=== PATIENT | female | born 1960 | race Caucasian/White ===

== ENCOUNTER 2019-11-11 15:01 | Emergency (ER) | payer MEDICARE ==
[~2019-11-11] VITALS: Ht 152.4 cm; Wt 56.7 kg
[~2019-11-11 15:01] MED LIST: ACEHYDSO RIGHTEAR; ACET325 PO; ACYC400 PO; ACYC800 PO; ALBU3IS INH; ALBU90OI INH; ALBU90OI6 INH; ALBUIS INH; AMOCLA875 PO; ASPI81CH; BENZ100A PO; CIPR500 PO; CYCL10 PO; Cleocin HCl300 MG PO; DOCU100 PO; FERR325 PO; FLUSAL2505 INH; HYDACE10B PO; HYDACE5 PO; HYDCHL25 PO; HYDR1TAB94; HYDR1TAB94 PO; Ipratr-Albuterol3 ML INH; LEVO750 PO; LISI20 PO; LISI5 PO; MELO7.5 PO; METH10 PO; METO5A PO; MIGRAINE MED; NICO21TP TOP; Nix Lice Treatm59 ML TOP; OMEP20ER PO; ONDA4ODT MM; ONDA4ODT PO; Omeprazole20 M1 PO; PANT40 PO; PRED10 PO; PRED20 PO; PREG50 PO; PROP10; Percocet 5-3251 EACH PO; Prilosec20 MG PO; Prinivil10 MG PO; Protonix40 MG PO; Q-Tussin100 MG/5 M PO; RXHYDACE PO; SUCR1 PO; SUCR1SU PO; TRAM50 PO; Ventolin Soln3 ML INH; Zofran Odt4 MG PO; Zofran Odt4 MG SL; Zofran4 MG PO
[2019-11-11] MEDS ORDERED: HYDR1TAB94 PO (16:59)
== END 2019-11-11 17:12 | disposition home or self-care (01) ==
LOC: ER 15:01
DX: M25.551 Pain in right hip (principal); G89.29 Other chronic pain; Z79.899 Other long term (current) drug therapy; I10 Essential (primary) hypertension; J44.9 Chronic obstructive pulmonary disease, unspecified; D64.9 Anemia, unspecified; F17.200 Nicotine dependence, unspecified, uncomplicated
CPT/HCPCS: 73502; 99283-25; A9270-GY

== ENCOUNTER → 2020-09-14 | Outpatient (CLI) | payer MEDICARE | LOC: LAB 14:22 → LAB SHORT 14:22 | PROVIDERS: Nurse Practitioner Family | DX: G89.4 Chronic pain syndrome (principal); F19.10 Other psychoactive substance abuse, uncomplicated | CPT/HCPCS: G0480 ==

== ENCOUNTER 2021-01-19 20:27 | Emergency (ER) | payer MEDICARE ==
[~2021-01-19] VITALS: Ht 149.9 cm; Wt 56.7 kg
== END 2021-01-19 22:18 | disposition home or self-care (01) ==
LOC: ER 20:27
DX: M25.551 Pain in right hip (principal); G89.29 Other chronic pain; R06.00 Dyspnea, unspecified; I10 Essential (primary) hypertension; J44.9 Chronic obstructive pulmonary disease, unspecified; F17.200 Nicotine dependence, unspecified, uncomplicated; Z79.899 Other long term (current) drug therapy
CPT/HCPCS: 71045; 73502; 93005; 93010; 96372; 99283-25; J1885

== ENCOUNTER 2023-04-23 04:19 | Emergency (ER) | payer MEDICARE ==
[~2023-04-23] VITALS: Ht 149.9 cm; Wt 56.7 kg
[2023-04-23 04:25] VITALS: BP 180/111
[2023-04-23] MEDS ORDERED: ERYT1OIN BOTHEYES (08:17)
== END 2023-04-23 09:08 | disposition home or self-care (01) ==
LOC: ER 04:19
DX: H10.9 Unspecified conjunctivitis (principal); I10 Essential (primary) hypertension; J44.9 Chronic obstructive pulmonary disease, unspecified; F17.200 Nicotine dependence, unspecified, uncomplicated; Z79.899 Other long term (current) drug therapy
CPT/HCPCS: 99283; A9270

== ENCOUNTER 2023-08-11 16:19 | Emergency (ER) | payer MEDICARE ==
[~2023-08-11] VITALS: Ht 149.9 cm; Wt 63.5 kg
[~2023-08-11 16:19] MED LIST changes: +ERYT1OIN BOTHEYES
[2023-08-11] MEDS ORDERED: Metoprolol Succinate 25 MG TABCR PO ONE (16:50)
[2023-08-11 17:49] LABS: Bun/Creatinine Ratio 28.6 (12.0-20.0); Calcium, Blood 9.5 mg/dL (8.5-10.1); Creatinine, Blood 0.67 mg/dL (0.40-1.00); Potassium, Blood 3.4 mmol/L (3.5-5.5)
[2023-08-11 18:00] VITALS: BP 211/125
[2023-08-11] MEDS ORDERED: Acetaminophen 500 MG Tab PO ONE (18:00)
[2023-08-11] MEDS ORDERED: POTCHL10ER PO (18:02)
[2023-08-11] MEDS ORDERED: FURO20 PO (18:02)
== END 2023-08-11 18:39 | disposition home or self-care (01) ==
LOC: ER 16:19
PROVIDERS: Emergency Medicine
DX: S80.212A Abrasion, left knee, initial encounter (principal); S80.211A Abrasion, right knee, initial encounter; I10 Essential (primary) hypertension; E87.6 Hypokalemia; R60.0 Localized edema; W01.10XA Fall on same level from slipping, tripping and stumbling with subsequent striking against unspecified object, initial encounter; Z79.899 Other long term (current) drug therapy; J44.9 Chronic obstructive pulmonary disease, unspecified; F17.200 Nicotine dependence, unspecified, uncomplicated
CPT/HCPCS: 73562-LT; 73562-RT; 80048; 99284-25; A9270

== ENCOUNTER 2023-08-12 07:28 | Observation (INO) | payer MEDICARE ==
[~2023-08-12] VITALS: Ht 149.9 cm; Wt 50.6 kg
[~2023-08-12 07:28] MED LIST changes: +FURO20 PO; +POTCHL10ER PO
[2023-08-12 08:04] LABS: BASOPHILS ABSOLUTE AUTO 0.02 K/mm3 (0.00-0.23); BASOPHILS PERCENT AUTO 0 % (0-2); EOSINOPHILS ABSOLUTE AUTO 0.03 K/mm3 (0.00-0.68); EOSINOPHILS PERCENT AUTO 0 % (0-6); Hematocrit 41.6 % (33.0-51.0); Hemoglobin 13.2 g/dL (11.5-16.0); IMMATURE GRAN ABSOLUTE AUTO 0.01 K/mm3 (0.00-0.10); IMMATURE GRAN PERCENT AUTO 0 % (0-1); LYMPHOCYTES ABSOLUTE AUTO 1.27 K/mm3 (0.84-5.20); LYMPHOCYTES PERCENT AUTO 18 % (21-46); MONOCYTES ABSOLUTE AUTO 0.69 K/mm3 (0.16-1.47); MONOCYTES PERCENT AUTO 10 % (4-13); Mean Corpuscular HGB Conc 31.7 g/dL (31.5-36.5); Mean Corpuscular Volume 88 fL (80-100); Mean Platelet Volume 10.8 fL (9.1-12.4); NEUTROPHILS ABSOLUTE AUTO 5.07 K/mm3 (1.96-9.15); NEUTROPHILS PERCENT AUTO 72 % (41-73); Platelet Count 232 K/mm3 (150-400); RDW Coefficient Variation 13.7 % (11.7-14.2); RDW Standard Deviation 44.2 fL (35.1-46.3); Red Blood Cell Count 4.72 M/mm3 (3.80-5.20); White Blood Cell Count 7.09 K/mm3 (4.00-11.30)
[2023-08-12 08:20] LABS: Albumin, Blood 3.7 g/dL (3.4-5.0); Albumin/Globulin Ratio 0.8 (0.8-1.8); Bilirubin, Total 0.8 mg/dL (0.1-1.0); Bun/Creatinine Ratio 27.6 (12.0-20.0); Calcium, Blood 10.1 mg/dL (8.5-10.1); Creatinine, Blood 0.65 mg/dL (0.40-1.00); Globulin, Blood 4.5 g/dL (2.2-4.0); Potassium, Blood 3.9 mmol/L (3.5-5.5); Total Protein, Blood 8.2 g/dL (6.4-8.2)
[2023-08-12] MEDS ORDERED: Nitroglycerin 1 INCH/GM PKT TOP ONE (09:55)
[2023-08-12] MEDS ORDERED: Aspirin 325 MG Tab PO ONE (09:55)
[2023-08-12] MEDS ORDERED: Heparin Sodium 5000 Units/ML 1ML MDV IV ONE (10:35)
[2023-08-12] MEDS ORDERED: Acetaminophen 325 MG TABLET PO PRN (11:45)
[2023-08-12 11:47] LABS: Anti-Xa UFH, PHA Monitoring <0.10 IU/mL; International Normalized Ratio 1.02; Prothrombin Time Results 10.9 Sec (9.7-11.5)
[2023-08-12] MEDS ORDERED: Heparin Sodium,Porcine/0.5 NS 500 ML IV SCH (11:55)
[2023-08-12 12:07] LABS: CHOL/HDL RATIO 1.9; Cholesterol 169 mg/dL (50-200); HDL Cholesterol 87 mg/dL (>39); LDL/HDL RATIO 0.8; Low Density Lipoprotein Chol 72 mg/dL (0-110); Triglycerides 51 mg/dL (30-160); Very Low Density Lipoprot Chol 10 mg/dL (6-32)
[2023-08-12] MEDS ORDERED: HYDROcodone 5-APAP 325 TAB PO PRN (13:00)
[2023-08-12] MEDS ORDERED: Albuterol HFA200 ACT/6.7 GM INH INH PRN (13:25)
[2023-08-12 13:56] VITALS: BP 144/95
[2023-08-12] MEDS ORDERED: Atorvastatin 40 MG Tab PO SCH (16:00)
[2023-08-12 16:05] VITALS: BP 120/89
[2023-08-12] MEDS ORDERED: Pantoprazole Sodium 40 MG Tab PO SCH (16:30)
[2023-08-12] MEDS ORDERED: Sucralfate 1 GM Tab PO SCH (16:30)
[2023-08-12 17:01] LABS: U Amphetamine Screen DETECTED; U Barbituate Screen Not Detected; U Benzodiazapine Screen Not Detected; U Buprenorphine Screen Not Detected; U Cannabinoids Screen Not Detected; U Cocaine Screen Not Detected; U Methadone Screen Not Detected; U Methamphetamine Screen DETECTED; U Opiates Screen Not Detected; U Oxycodone Screen Not Detected; U Phencyclidine Screen Not Detected
--- NOTE | 2023-08-12 18:20 | NUR ---
PT ARRIVED IN THE ROOM AT APPROX 1400 PT TRANSFERRED TO BED VIA SLIDER SHEET. PT ALERT AND ORIENTED X3-4, MUMBLED SPEECH, ABLE TO ANSWER SOME QUESTIONS APPROPRIATELY HAS SOME BIZAARE/UNRELATED TOPICS RESPONSE AT TIMES. PT C/O HIP, BACK AND LEFT SHOULDER PAIN PT REPORTS SORENESS D/T FALL YESTERDAY BUT WAS ABLE TO STAND AND USE THE BEDSIDE COMMODE VIA WALKER 1PA, ALSO ABLE TO WORK WITH PHYSICAL THERAPIST. PT WAS MEDICATED WITH NORCO X1 AND PT SLEPT SINCE THEN. PT ON HEP GTT AT 15U/KG/HR DENIES CHEST PAIN SINCE ARRIVAL, TROPONIN TRENDS LAST 242, MD AWARE TO MONITOR PT FOR NOW, ABD KHARI DONE AWAITING FOR RESULT. UTOX DONE RESULTS POSITIVE FOR METH/AMPHETAMINES. PT UNABLE TO TOLERATE REGULAR FOOD TEXTURE DUE TO MISSING TEETH/MOLARS DIET SWITCHED TO SOFT. VITALS HRR SR 60-70'S, SBP 120-140'S, SATS ABOVE 95% ON RA, AFEBRILE. PT NOW RESTING IN BED CALL LIGHTS IN REACH WILL REPORT TO ONCOMING SHIFT
[2023-08-12 19:27] VITALS: BP 151/93
--- NOTE | 2023-08-12 19:50 | NUR ---
ASSUMPTION OF CARE AFTER RECEIVING REPORT FROM [place] RN, THIS RN ASSUMED CARE AT APPROX 1915. DURING INITIAL ENCOUNTER, PATIENT SLEEPING. EASILY AROUSABLE WITH VERBAL STIMULI. ALERT AND ORIENTED X3-4. SOFT, MUMBLED SPEECH NOTED. MOVES ALL EXTREMITIES EQUALLY WITH REPORTED INCREASED WEAKNESS SINCE FALL 08/11/23. REPORTS 5/10 CHRONIC BACK PAIN AND L HIP, L SHOULDER PAIN FROM FALL. REPORTING THAT THE NORCO ADMINISTERED PER EMAR BY DAY RN PROVIDED RELIEF. TELEMETRY SHOWING SINUS KARRI 50s-60s TO NORMAL SINUS 60s-70s. BP ELEVATED, SBP 150s. DENIES CHEST PAIN, PRESSURE. HEPARIN GTT INFUSING PER EMAR. ON ROOM AIR, SATs >90%. RESPIRATIONS EVEN, UNLABORED. PATIENT IS A STAND BY ASSIST TO BSC. REPOSITIONS HERSELF INDEPENDENTLY IN BED. BED ALARM ON DUE TO FALL 08/11/23. CALL LIGHT IN REACH.
[2023-08-12] MEDS ORDERED: Docusate Sodium 100 MG Cap PO SCH (21:00)
[2023-08-12 23:00] VITALS: BP 131/73
[2023-08-13] VITALS (7 sets, daily range): BP systolic 116–154; BP diastolic 74–105
[2023-08-13 02:01] LABS: BASOPHILS ABSOLUTE AUTO 0.03 K/mm3 (0.00-0.23); BASOPHILS PERCENT AUTO 1 % (0-2); EOSINOPHILS ABSOLUTE AUTO 0.07 K/mm3 (0.00-0.68); EOSINOPHILS PERCENT AUTO 1 % (0-6); Hematocrit 36.2 % (33.0-51.0); Hemoglobin 11.5 g/dL (11.5-16.0); IMMATURE GRAN ABSOLUTE AUTO 0.01 K/mm3 (0.00-0.10); IMMATURE GRAN PERCENT AUTO 0 % (0-1); LYMPHOCYTES ABSOLUTE AUTO 1.87 K/mm3 (0.84-5.20); LYMPHOCYTES PERCENT AUTO 34 % (21-46); MONOCYTES PERCENT AUTO 13 % (4-13); Mean Corpuscular HGB 27.9 pg (26.0-34.0); Mean Corpuscular HGB Conc 31.8 g/dL (31.5-36.5); Mean Corpuscular Volume 88 fL (80-100); Mean Platelet Volume 10.5 fL (9.1-12.4); NEUTROPHILS ABSOLUTE AUTO 2.76 K/mm3 (1.96-9.15); NEUTROPHILS PERCENT AUTO 51 % (41-73); Platelet Count 207 K/mm3 (150-400); RDW Coefficient Variation 14.1 % (11.7-14.2); RDW Standard Deviation 45.5 fL (35.1-46.3); Red Blood Cell Count 4.12 M/mm3 (3.80-5.20); White Blood Cell Count 5.44 K/mm3 (4.00-11.30)
[2023-08-13 02:19] LABS: Albumin, Blood 2.9 g/dL (3.4-5.0); Albumin/Globulin Ratio 0.8 (0.8-1.8); Bilirubin, Total 0.3 mg/dL (0.1-1.0); Bun/Creatinine Ratio 38.6 (12.0-20.0); Calcium, Blood 8.9 mg/dL (8.5-10.1); Creatinine, Blood 0.65 mg/dL (0.40-1.00); Globulin, Blood 3.5 g/dL (2.2-4.0); Potassium, Blood 3.9 mmol/L (3.5-5.5); Total Protein, Blood 6.4 g/dL (6.4-8.2)
[2023-08-13] MEDS ORDERED: Clarify Drug Order XX ONE (02:30)
--- NOTE | 2023-08-13 06:05 | NUR ---
SHIFT SUMMARY NO ACUTE EVENTS SINCE ASSUMPTION OF CARE. PATIENT SLEPT THROUGHOUT SHIFT. EASILY AROUSABLE WITH VERBAL STIMULI. CONTINUING TO REPORT CHRONIC BACK PAIN AND L HIP, L SHOULDER PAIN FROM FALL. MANAGING PER EMAR WITH PO NORCO AND REPOSITIONING PRN. TELEMETRY SHOWING SINUS KARRI 50s-60s. SBP 130s-150s. DENIES CHEST PAIN, PRESSURE. HEPARIN GTT INFUSING PER EMAR AT 15. ON ROOM AIR, SATs >90%. RESPIRATIONS EVEN, UNLABORED AT REST. EXPERIENCES MILD SHORTNESS OF BREATH WITH MOBILITY. IS A ONE PERSON ASSIST TO BSC WITH FWW. VOIDING. NO BM THIS SHIFT. CALL LIGHT IN REACH. WILL CONTINUE TO MONITOR AND REPORT TO ONCOMING RN.
[2023-08-13] MEDS ORDERED: Lisinopril 20 MG Tab PO SCH ×2 (09:00)
[2023-08-13] MEDS ORDERED: Aspirin 81 MG Chew PO SCH (09:00)
[2023-08-13] MEDS ORDERED: Furosemide 10 MG/ML 4ML Vial IV SCH (09:00)
[2023-08-13] MEDS ORDERED: HydrALAZINE HCl 20 MG / ML 1ML Vial IV PRN ×2 (09:50)
--- NOTE | 2023-08-13 10:54 | NUR ---
AM SUMMARY PATIENT IS ALERT AND ORIENTED X4. SHE WAS ABLE TO AMBULATE FROM BED TO CHIR FOR BREAKFAST WITH GAIT BELT AND WALKER ASSISTANCE. SHE WAS COMPLAINING OF BACK AND HIP PAIN WHEN SITTING UP IN BED. SHE ATE ABOUT 60% OF BREAKFAST. ORDERED A HIP XRAY THIS MORNING THAT IS STILL PENDING RESULTS. SHORTLY AFTER, PT CAME TO GET HER UP BUT WILL COME BACK AFTER PATIENT HAS RESTED PER NURSE ZENA. PATIENTS BP WAS HIGH THIS MORNING WHICH WAS EXPECTED WITH PREVIOUS DIAGNOSIS. AFTER WE GAVE LISINOPRIL, RECHECKED BP AND DID COME DOWN TO 116/84. SPO2 WAS HIGH 90'S ON RA. WILL CONTINUE TO MONITOR PAIN AND BP.
[2023-08-13] MEDS ORDERED: Varenicline Tartrate 1 MG Tablet PO SCH (16:00)
--- NOTE | 2023-08-13 18:01 | NUR ---
SHIFT SUMMARY HIP XRAY DONE AT 0900, RESULT SHOWED NECROTIC R HIP. DR. FREIRE STATED THAT SHE WAS REFERRED IN PAST TO MINE AND WE HAVE NO PLAN AT THIS TIME TO DO SURGERY HERE. PT COMPLAINED OF BREAKTHROUGH PAIN IN LEFT HIP AFTER NORCO WAS GIVEN BY NURSE FREITAS. TELEMETRY CONTINUED TO SHOW SINUS KARRI THROUGHOUT THE DAY. SPO2 WAS >90% ALL DAY ON RA. AFTER MEDICATING WITH LISINOPRIL FOR HTN, SBP WAS <115-135 AND DBP <70-80. AMBULATED TO CHAIR FOR ALL MEALS TODAY USING GAIT BELT AND WALKER. PHYSICAL THERAPY SAW HER AROUND 1500 AND SAID THAT ROM IN RIGHT LEG WAS NOT GOOD THE LEFT. PT REPORTED NO SOB OR PAIN IN CHEST WHILE AMBULATED TO COMMODE OR CHAIR. SHE NEVER HAD A BM TODAY, NO TROUBLES URINATING AFTER LASIX WAS GIVEN. RN PUBLIC HEALTH REGISTRAR SPOKE TO HER ABOUT HOME SITUATION, SHE STATED THAT SHE WANTED TO QUIT SMOKING. ORDERS FOR CHANTIX AND CELEBREX HAVE BEEN PUT INTO EMAR, WILL REPORT TO ONCOMING NURSE.
[2023-08-13] MEDS ORDERED: Celecoxib 100 MG Cap PO SCH (21:00)
--- NOTE | 2023-08-13 21:29 | NUR ---
PT IS ALERT AND ORIENTED X 4, COOPERATIVE WITH CARE AND ABLE TO MAKE NEEDS KNOWN. PERRLA. SHE IS HARD TO UNDERSTAND AT TIMES BC SHE MUMBLES WHEN SHE TALKS. SHE IS ON RA MAINTAINING 02 SATURATION ABOVE 92%, SHE DENIES SOB. HR HAS BEEN SR 80'S AND SHE DENIES CHEST PAIN/PRESSURE. PT IS CONTINENT OF BLADDER AND BOWELS. NO BOWEL MOVEMENT YET THIS SHIFT. PT COMPLAINS OF HIP, LEG, AND BACK PAIN. PT REPOSITIONED AND MEDICATED PER EMAR. PT HAD A VANILLA ENSURE, ORANGE JUICE, AND SOME YOGURT AND TOLERATED WELL. SHE IS CURRENTLY RESTING IN BED WITH TV ON. CALL LIGHT WITHIN REACH.
[2023-08-14 04:28] LABS: BASOPHILS ABSOLUTE AUTO 0.02 K/mm3 (0.00-0.23); BASOPHILS PERCENT AUTO 0 % (0-2); EOSINOPHILS ABSOLUTE AUTO 0.07 K/mm3 (0.00-0.68); EOSINOPHILS PERCENT AUTO 1 % (0-6); Hematocrit 37.3 % (33.0-51.0); Hemoglobin 11.8 g/dL (11.5-16.0); IMMATURE GRAN ABSOLUTE AUTO 0.02 K/mm3 (0.00-0.10); IMMATURE GRAN PERCENT AUTO 0 % (0-1); LYMPHOCYTES ABSOLUTE AUTO 1.74 K/mm3 (0.84-5.20); LYMPHOCYTES PERCENT AUTO 28 % (21-46); MONOCYTES ABSOLUTE AUTO 0.86 K/mm3 (0.16-1.47); MONOCYTES PERCENT AUTO 14 % (4-13); Mean Corpuscular HGB Conc 31.6 g/dL (31.5-36.5); Mean Corpuscular Volume 88 fL (80-100); Mean Platelet Volume 11.4 fL (9.1-12.4); NEUTROPHILS ABSOLUTE AUTO 3.43 K/mm3 (1.96-9.15); NEUTROPHILS PERCENT AUTO 56 % (41-73); Platelet Count 215 K/mm3 (150-400); RDW Coefficient Variation 14.2 % (11.7-14.2); RDW Standard Deviation 45.2 fL (35.1-46.3); Red Blood Cell Count 4.22 M/mm3 (3.80-5.20); White Blood Cell Count 6.14 K/mm3 (4.00-11.30)
[2023-08-14 04:29] VITALS: BP 158/89
[2023-08-14 04:51] LABS: Bun/Creatinine Ratio 39.9 (12.0-20.0); Calcium, Blood 9.5 mg/dL (8.5-10.1); Creatinine, Blood 0.85 mg/dL (0.40-1.00)
--- NOTE | 2023-08-14 06:50 | NUR ---
NO ACUTE CHANGES, SEE PREVIOUS NOTE.
[2023-08-14 07:44] VITALS: BP 161/92
[2023-08-14] MEDS ORDERED: Enoxaparin 40 MG/0.4 ML SYR SC SCH (09:00)
[2023-08-14] MEDS ORDERED: Ondansetron HCl 2 MG / ML 2ML Vial IV PRN (09:10)
[2023-08-14] MEDS ORDERED: LISI20 PO (12:07)
[2023-08-14] MEDS ORDERED: VARENICLINE PO (12:07)
[2023-08-14] MEDS ORDERED: ACET325 PO (12:07)
[2023-08-14] MEDS ORDERED: NAPROXEN PO (12:09)
[2023-08-14] MEDS ORDERED: CHANTIX0.5 MG PO (12:20)
--- NOTE | 2023-08-14 13:55 | NUR ---
PT DISCHARGED VIA DC VALENTINONOLBERTO [facility] @ 1008. ALL DC PAPERWORK WENT THROUGH AND ALL QUESTIONS ANSWERED. PT VERBALIZED UNDERSTANDING. DC PAPERWORK SIGNED
--- NOTE | 2023-08-15 01:38 | NUR ---
REVIEWED INFO FOR CURRENT ADMISSION
== END 2023-08-14 13:57 | disposition home or self-care (01) ==
LOC: ER 07:28 → PCU 07:29
PROVIDERS: Emergency Medicine; Family Medicine; ADMIT Internal Medicine
DX: R07.89 Other chest pain (principal); I21.4 Non-ST elevation (NSTEMI) myocardial infarction; I16.0 Hypertensive urgency; F17.210 Nicotine dependence, cigarettes, uncomplicated; J45.909 Unspecified asthma, uncomplicated; M87.9 Osteonecrosis, unspecified; K21.9 Gastro-esophageal reflux disease without esophagitis; M25.562 Pain in left knee; M25.561 Pain in right knee
CPT/HCPCS: 36415; 71045; 73502; 76705; 80048; 80053; 80061; 82947; 83036; 83690; 84484; 85025; 85520; 85610; 85730; 93005; 93010; 93306; 96365; 96372; 96375; 96376; 97110; 97116; 97161; 99285-25; A9270; G0378; J1644; J1650; J1940; J2405

== ENCOUNTER 2023-08-14 18:36 | Observation (INO) | payer MEDICARE ==
[~2023-08-14] VITALS: Ht 149.9 cm; Wt 51.5 kg
[~2023-08-14 18:36] MED LIST changes: +CHANTIX0.5 MG PO; +NAPROXEN PO; +VARENICLINE PO
[2023-08-14 20:13] LABS: BASOPHILS ABSOLUTE AUTO 0.02 K/mm3 (0.00-0.23); BASOPHILS PERCENT AUTO 0 % (0-2); EOSINOPHILS ABSOLUTE AUTO 0.03 K/mm3 (0.00-0.68); EOSINOPHILS PERCENT AUTO 0 % (0-6); Hematocrit 40.7 % (33.0-51.0); Hemoglobin 12.8 g/dL (11.5-16.0); IMMATURE GRAN ABSOLUTE AUTO 0.02 K/mm3 (0.00-0.10); IMMATURE GRAN PERCENT AUTO 0 % (0-1); LYMPHOCYTES ABSOLUTE AUTO 1.26 K/mm3 (0.84-5.20); LYMPHOCYTES PERCENT AUTO 17 % (21-46); MONOCYTES ABSOLUTE AUTO 0.69 K/mm3 (0.16-1.47); MONOCYTES PERCENT AUTO 9 % (4-13); Mean Corpuscular HGB 27.6 pg (26.0-34.0); Mean Corpuscular HGB Conc 31.4 g/dL (31.5-36.5); Mean Corpuscular Volume 88 fL (80-100); Mean Platelet Volume 10.8 fL (9.1-12.4); NEUTROPHILS PERCENT AUTO 72 % (41-73); Platelet Count 235 K/mm3 (150-400); RDW Coefficient Variation 14.2 % (11.7-14.2); RDW Standard Deviation 45.1 fL (35.1-46.3); Red Blood Cell Count 4.63 M/mm3 (3.80-5.20); White Blood Cell Count 7.32 K/mm3 (4.00-11.30)
[2023-08-14 20:36] LABS: Albumin, Blood 3.5 g/dL (3.4-5.0); Albumin/Globulin Ratio 0.9 (0.8-1.8); Bilirubin, Total 0.4 mg/dL (0.1-1.0); Bun/Creatinine Ratio 35.9 (12.0-20.0); Calcium, Blood 10.1 mg/dL (8.5-10.1); Creatinine, Blood 0.89 mg/dL (0.40-1.00); Globulin, Blood 4.1 g/dL (2.2-4.0); Potassium, Blood 3.9 mmol/L (3.5-5.5); Total Protein, Blood 7.6 g/dL (6.4-8.2)
[2023-08-14] MEDS ORDERED: HyDROXyzine HCl 25 MG Tab PO ONE (22:45)
[2023-08-14] MEDS ORDERED: Mag Hydrox/AL Hydrox/Simeth 30 ML UDC PO ONE (22:45)
[2023-08-14] MEDS ORDERED: Lidocaine 2% Viscous Soln 15 ML UDC PO ONE (22:45)
[2023-08-15] VITALS (8 sets, daily range): BP systolic 133–179; BP diastolic 82–106
[2023-08-15] MEDS ORDERED: Aspirin 325 MG Tab PO ONE (00:55)
[2023-08-15] MEDS ORDERED: Heparin Sodium,Porcine/0.5 NS 500 ML IV SCH (01:45)
[2023-08-15 01:46] LABS: Anti-Xa UFH, PHA Monitoring <0.10 IU/mL; International Normalized Ratio 0.95; Prothrombin Time Results 10.2 Sec (9.7-11.5)
[2023-08-15] MEDS ORDERED: FentaNYL Citrate 50 MCG/ML 2 ML Injection IV PRN (02:20)
[2023-08-15] MEDS ORDERED: NS 1,000 ML IV SCH (02:20)
[2023-08-15] MEDS ORDERED: Ondansetron HCl 2 MG / ML 2ML Vial IV PRN (02:20)
[2023-08-15] MEDS ORDERED: Mag Hydrox/Al Hydrox/Simeth 72 ML,Lidocaine 2% Viscous Soln 36 ML,Atropine/Scopalam/Hyo... PO PRN (02:30)
[2023-08-15] MEDS ORDERED: HydrALAZINE HCl 20 MG / ML 1ML Vial IV ONE (03:00)
[2023-08-15] MEDS ORDERED: HydrALAZINE HCl 20 MG / ML 1ML Vial IV PRN (04:20)
[2023-08-15] MEDS ORDERED: Nitroglycerin 0.4 MG SUBL SL PRN (04:20)
[2023-08-15] MEDS ORDERED: Pantoprazole Sodium 40 MG Injection IV SCH (04:30)
[2023-08-15 05:03] LABS: BASOPHILS ABSOLUTE AUTO 0.02 K/mm3 (0.00-0.23); BASOPHILS PERCENT AUTO 0 % (0-2); EOSINOPHILS ABSOLUTE AUTO 0.05 K/mm3 (0.00-0.68); EOSINOPHILS PERCENT AUTO 1 % (0-6); Hemoglobin 13.6 g/dL (11.5-16.0); IMMATURE GRAN ABSOLUTE AUTO 0.01 K/mm3 (0.00-0.10); IMMATURE GRAN PERCENT AUTO 0 % (0-1); LYMPHOCYTES ABSOLUTE AUTO 2.17 K/mm3 (0.84-5.20); LYMPHOCYTES PERCENT AUTO 33 % (21-46); MONOCYTES ABSOLUTE AUTO 0.84 K/mm3 (0.16-1.47); MONOCYTES PERCENT AUTO 13 % (4-13); Mean Corpuscular HGB 28.3 pg (26.0-34.0); Mean Corpuscular HGB Conc 32.4 g/dL (31.5-36.5); Mean Corpuscular Volume 87 fL (80-100); Mean Platelet Volume 11.5 fL (9.1-12.4); NEUTROPHILS ABSOLUTE AUTO 3.45 K/mm3 (1.96-9.15); NEUTROPHILS PERCENT AUTO 53 % (41-73); Platelet Count 235 K/mm3 (150-400); RDW Standard Deviation 45.1 fL (35.1-46.3); Red Blood Cell Count 4.81 M/mm3 (3.80-5.20); White Blood Cell Count 6.54 K/mm3 (4.00-11.30)
[2023-08-15] MEDS ORDERED: Acetaminophen 325 MG TABLET PO PRN (05:05)
--- NOTE | 2023-08-15 05:07 | NUR ---
SHIFT SUMMARY. PT ARRIVED ON UNIT AT ABOUT ~0400. AOX3-4 BUT VERY ANXIOUS WITH FLIGHT OF IDEAS PRESENT. 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 DESPITE THIS, HAS BEEN COOPERATIVE WITH CARE THUS FAR. COMPLAINED OF ABD AND RIGHT HIP PAIN. NOTIFIED HOSPITALIST DR. CANELA WHO ORDERED TYLENOL FOR MANAGEMENT. REGULAR DIET OKAY PER DR. CANELA. ADMISSION PROCESS COMPLETED PER PROTOCOL. VITALS STABLE SINCE ARRIVAL. PT ON ROOM AIR. ADMITTED FOR NSTEMI. HEPARIN DCd IN ED. NS INFUSING PER EMAR. EDUCATED SOLAR MANAGER LIGHT USE. EDUCATED ON FIRE SAFETY/IGNITION RISKS. UNCOLLECTED URINE SPECIMEN FOR TOXICOLOGY SCREEN. PER ED REPORT, PT INCONTINENT/CONTINENT. ATTENDS IN PLACE. TELE IN PLACE, RUNNING SINUS RHYTHM. BED LOCKED IN LOWEST POSITION. CALL LIGHT LEFT WITHIN REACH. CONTINUING TO MONITOR.
[2023-08-15 05:51] LABS: Albumin, Blood 3.5 g/dL (3.4-5.0); Albumin/Globulin Ratio 0.8 (0.8-1.8); Bilirubin, Total 0.3 mg/dL (0.1-1.0); Bun/Creatinine Ratio 33.2 (12.0-20.0); Calcium, Blood 9.7 mg/dL (8.5-10.1); Creatinine, Blood 0.72 mg/dL (0.40-1.00); Globulin, Blood 4.4 g/dL (2.2-4.0); Potassium, Blood 3.8 mmol/L (3.5-5.5); Total Protein, Blood 7.9 g/dL (6.4-8.2)
--- NOTE | 2023-08-15 05:51 | NUR ---
CALLED TO NOTIFY HOSPITALIST DR. CANELA OF MILDLY ELEVATED D-DIMER. NO ORDERS AT THIS TIME. CONTINUING TO MONITOR.
[2023-08-15 08:04] LABS: U Amphetamine Screen Not Detected; U Barbituate Screen Not Detected; U Benzodiazapine Screen Not Detected; U Buprenorphine Screen Not Detected; U Cannabinoids Screen Not Detected; U Cocaine Screen Not Detected; U Methadone Screen Not Detected; U Methamphetamine Screen Not Detected; U Opiates Screen DETECTED; U Oxycodone Screen Not Detected; U Phencyclidine Screen Not Detected
[2023-08-15] MEDS ORDERED: Varenicline Tartrate 1 MG Tablet PO SCH (09:00)
[2023-08-15] MEDS ORDERED: Lisinopril 20 MG Tab PO SCH (09:00)
[2023-08-15] MEDS ORDERED: Enoxaparin 40 MG/0.4 ML SYR SC SCH (09:00)
--- NOTE | 2023-08-15 15:40 | NUR ---
PT SHIFT SUMMARY/TRANSFER NOTE: PT TRANSFERRED TO 344 BEDSIDE REPORT GIVEN TO DANIEL HUDSON. ALL BELONGINGS SENT WITH THE PT WELL POCKET KNIFE AND PACKET OF CIGARETTE THAT WAS LOCKED UP IN THE DRAWER. PT STARTED GETTING REALLY ANXIOUS, CONFUSED, HALLUCINATING AND VERY PARANOID BEFORE LUNCH TIME. PT HAS SET THE CHAIR AND BED ALARM ON MULTIPLE TIMES D/T ATTEMPTS OF LEAVING AMA. PT WAS SEEING AND HEARING THINGS LIKE THE TOBIAS ARE FALLING APART OR THERE'S A TRUCK IN THE WINDOW TRYING TO GET IN. YELLED AND ACCUSED THIS RN OF TALKING TO THIS RUTHIE NAMED "JOHNNA" WHO'S A [employer] MDS MANAGER AND IS AFTER HER, ACCUSING THAT THIS RN WAS TALKING TO THAT RUTHIE BEHIND HER BACK PLANNING TO GIVE HIM THE "HOLMAN". PT STATED AND WAS VERY EMOTIONAL "I DONT TRUST HIM! I KNOW HE'S AROUND! HE'S BEHIND ME AND YOU'RE TALKING TO HIM! I DONT TRUST HIM HIS ABUSIVE AND HE'S GONNA KIDNAP ME!" PT REASSURED SAFETY AND WAS REDIRECTED MULTIPLE TIMES AND EVERY TIME PT HEARS AND SEES PEOPLE TALKING IN THE HALLWAY PT STARTS TO GET AGITATED AND WANTS TO LEAVE AMA. PT WAS RE-INFORMED OF PLAN OF CARE. PT GOT TRANSFERRED TO 344 [facility]UC MED PERSON CAME IN TO EXPLAIN PROCEDURE SUDDENLY PT REFUSED THE PROCEDURE EVEN THE LAB DRAWS. PT ABLE TO GET CT CHEST DONE THIS MORNING CAME BACK NEGATIVE FOR CLOTS. PT DENIED ANY CHEST PAIN/PRESSURE. SBP WAS ELEVATED AT 170'S THIS MORNING TRENDED DOWN BEFORE LUNCH TIME TO 130'S AFTER AM DOSE OF LISINOPRIL WAS GIVEN. NS RUNNING AT 75MLS/HR. PT TRANSFERRED VIA WHEELCHAIR.
--- NOTE | 2023-08-15 15:45 | NUR ---
NOTE: PT REFUSED STRESS TEST AND LAB DRAW AT 1515. EDUCATION PROVIDED ON THE IMPORTANCE OF THE TEST AND WHAT WOULD RESULT IF NOT COMPLETED. PT CONTINUED TO REFUSE. [employer] ALSO ATTEMPTED TO EDUCATION. PROVIDER, DR. RUANO NOTIFIED. PT CONTACTED HER COUSIN AND MAY ATTEMPT TO LEAVE AMA.
--- NOTE | 2023-08-15 16:32 | NUR ---
TRANSFER NOTE: PT TRANSFERRED FROM 361. ORIENTED TO ROOM. PERSONAL BELONGINGS LOCKED UP AND ON THE DAY BED. PT IS PARANOID AND ANXIOUS ABOUT BEING IN A NEW ROOM. CONTINUOUSLY ATTEMPTING TO REORIENT AND REASSURE THE PT THAT SHE IS SAFE.
--- NOTE | 2023-08-15 17:44 | NUR ---
NOTE: PT REFUSED A SECOND ATTEMPT AT A LAB DRAW.
--- NOTE | 2023-08-15 18:22 | NUR ---
SHIFT SUMMARY PT AOX2-3, IT WAXES AND WANES. 1 ASSIST WITH THE FWW TO THE BSC. 1:1 SITTER AT THE BS FOR PRODUCT SAFETY AND STANDARDS ENGINEER. PT IS PARANOID AND HALLUCINATING. SHE IS SEEING A MAN NAMED "ZAIDA" IN HER ROOM AND SHE CLAIMS HE IS THERE TO HARM HER. THE PT WILL ATTEMPT TO JUMP OUT OF THE BED, WANTING TO LEAVE FOR SAFETY. SHE HAS ATTEMPTED TO GET OOB MULTIPLE TIMES SINCE HER TRANSFER FROM [facility]. PT HAS THREATENED TO LEAVE AMA MULTIPLE TIMES BUT HAS YET TO SOLIDIFY A RIDE TO MAKE THAT HAPPEN. AT THE MOMENT WITH THE SITTER, SHE IS CALM. SHE IS WATCHING MOVIES AND APPEARS DISTRACTED. CALL LIGHT WITHIN REACH, BED LOCKED AND IN THE LOWEST POSITION. BA ON. NO FURTHER COMPLAINTS AT THIS TIME FROM THE PT. WILL REPORT TO ONCOMING NURSE.
[2023-08-16] MEDS ORDERED: DiphenhydrAMINE HCL 25 MG Cap PO PRN (00:25)
[2023-08-16] MEDS ORDERED: Polyethylene Glycol 3350 17 gm PO PRN (01:50)
--- NOTE | 2023-08-16 03:29 | NUR ---
bell captain PT IS ALERT AND ORIENTED, HAD OCCUTIONAL PARANOIA AND HALLUCINATION THAT INCREASED HER HEART RATH EACH TIME. PT IS A LITTLE IMPULSIVE AT TIMES SO SHE HAS A SITTER AT BED SIDE. REDNESS AND EDEMA NOTED TO BILATERAL ARMS. PT COMPLAINED OF IT ITCHING AND HURTING A LITTLE BIT. PICTURES WERE TAKEN AND WAS N OTIFIED. PT COMPLAINED OF 10/10 PAINED TO HER ALEXEY ABD AND SAID THAT SHE HASN'T HAD A BOWEL MOVEMENT IN ABOUT 3 DAYS. PRN PAIN MED WAS GIVEN AND MD WAS NOTIFIED AND PRN STOOL SOFTNER WAS. ORDERED. PT SAID SHE WOULD RATHER TAKE IT IN THE MORNING. BP WAS ELEVATED AND PRN HYDRALAZINE WAS GIFVEN. BP WAS CHECKED 30 MINUTES LATER AND IT DECREASED FROM 170S TO 160 SYSTOLIC.
--- NOTE | 2023-08-16 03:48 | NUR ---
NOTIFIED HOSPITALIST THAT PT REPORTED NEW REDNESS AND ITCHING BILATERALLY IN HANDS. BENADRYL PO ORDERED AND GIVEN. UPON REASSESSMENT LESS REDNESS AND PT REPORTS NO ITCHING.
[2023-08-16 04:45] VITALS: BP 168/84
[2023-08-16 06:17] LABS: BASOPHILS ABSOLUTE AUTO 0.03 K/mm3 (0.00-0.23); BASOPHILS PERCENT AUTO 0 % (0-2); EOSINOPHILS ABSOLUTE AUTO 0.08 K/mm3 (0.00-0.68); EOSINOPHILS PERCENT AUTO 1 % (0-6); Hematocrit 39.5 % (33.0-51.0); Hemoglobin 12.7 g/dL (11.5-16.0); IMMATURE GRAN ABSOLUTE AUTO 0.02 K/mm3 (0.00-0.10); IMMATURE GRAN PERCENT AUTO 0 % (0-1); LYMPHOCYTES ABSOLUTE AUTO 1.86 K/mm3 (0.84-5.20); LYMPHOCYTES PERCENT AUTO 25 % (21-46); MONOCYTES ABSOLUTE AUTO 0.95 K/mm3 (0.16-1.47); MONOCYTES PERCENT AUTO 13 % (4-13); Mean Corpuscular HGB 28.2 pg (26.0-34.0); Mean Corpuscular HGB Conc 32.2 g/dL (31.5-36.5); Mean Corpuscular Volume 88 fL (80-100); Mean Platelet Volume 10.7 fL (9.1-12.4); NEUTROPHILS ABSOLUTE AUTO 4.43 K/mm3 (1.96-9.15); NEUTROPHILS PERCENT AUTO 60 % (41-73); Platelet Count 225 K/mm3 (150-400); RDW Coefficient Variation 14.4 % (11.7-14.2); RDW Standard Deviation 46.2 fL (35.1-46.3); Red Blood Cell Count 4.51 M/mm3 (3.80-5.20); White Blood Cell Count 7.37 K/mm3 (4.00-11.30)
[2023-08-16 06:42] LABS: Albumin, Blood 3.5 g/dL (3.4-5.0); Albumin/Globulin Ratio 0.9 (0.8-1.8); Bilirubin, Total 0.5 mg/dL (0.1-1.0); Bun/Creatinine Ratio 31.3 (12.0-20.0); Calcium, Blood 9.9 mg/dL (8.5-10.1); Creatinine, Blood 0.64 mg/dL (0.40-1.00); Globulin, Blood 3.7 g/dL (2.2-4.0); Total Protein, Blood 7.2 g/dL (6.4-8.2)
[2023-08-16 07:15] VITALS: BP 150/80
[2023-08-16] MEDS ORDERED: Docusate Sodium 100 MG Cap PO SCH (09:00)
[2023-08-16] MEDS ORDERED: AmLODIPine Besylate 5 MG Tab PO SCH (09:00)
--- NOTE | 2023-08-16 11:50 | NUR ---
Patient is sitting on the bench in her room, with a sitter present. She tells me about the staff always watching her, talking about her and keeping her against her will. She states that she will leave the hospital today if no medical assistance is administered. We explore reasons to stay and better ways to view the staff who are trying to provide the best care possible. Patient responds well to redirection, kindness, focused attention and prayer, and states that she will think about staying until all tests are completed. I will continue to remain available to patient and family.
--- NOTE | 2023-08-16 14:43 | NUR ---
Spoke with pt daughter Shaina who is on pt cell phone. Shaina states pt grandson Aiden will be here to pick pt up and bring her to [facility] in [place]. Clarified pt will be signing out AMA. Dr. Ramirez informed.
[2023-08-16 14:57] VITALS: BP 124/92
--- NOTE | 2023-08-16 17:18 | NUR ---
Spoke with pt daughter Shaina who now states they are unable to pick her up due to car trouble. Pt remains paranoid, yelling. Telephone order from Dr. Ramirez for [facility].
[2023-08-16] MEDS ORDERED: OLANZapine 10 MG Vial IM PRN (17:25)
[2023-08-16] MEDS ORDERED: LORazepam 2 MG/ML 1ML Injection IV PRN (19:20)
[2023-08-16] MEDS ORDERED: LORazepam 2 MG/ML 1ML Injection IV ONE (19:20)
[2023-08-16 19:47] VITALS: BP 142/86
--- NOTE | 2023-08-16 21:36 | NUR ---
PT EXTREMELY AGITATED ATTEMPTING OUT INTO HALLWAY UNSAFELY WITH CANE, SHOUTING AT STAFF. EXTREMELY PARANOID ABOUT SOMEONE NAMED MERE TRYING TO GET INTO THEIR ROOM. PT SCREAMING VERY LOUDLY IN HALLWAY AND ATTEMPTING TO PHYSICALLY MOVE STAFF OUT OF WAY TO GET INTO HALLWAY. STAFF TRIED TO DESCALATE SITUATION, BUT PT REFUSING TO FOLLOW DIRECTIONS. HOSPITALIST NOTIFIED AND ORDER FOR ONE TIME DOSE IV ATIVAN 2 MG GIVEN. PT IMMEDIATELY CEASED AGITATING BEHAVIORS AND FELL ASLEEP. VSS, NO CHANGES ON TELE.
--- NOTE | 2023-08-17 04:51 | NUR ---
SHIFT SUMMARY NOC PT A/O TO SELF. HIGHLY PARANOID AND UNCOOPERATIVE WITH CARE. AT BEGINNING OF SHIFT PT WAS ATTEMPTING OUT IN ROJAS UNSAFELY WITH CANE SCREAMING ABOUT FICTITIOUS PEOPLE ATTEMPTING TO GET TO HER IN HER ROOM. ALL ATTEMPTS TO DESCALATE SITUATION WERE TRIED AND PT STILL WOULD NOT STAY IN ROOM OR STOP SCREAMING. HOSPITALIST NOTIFIED AND ONE TIME DOSE IV ATIVAN 2 MG GIVEN, WHICH STOPPED PT BEHAVIOURS IMMEDIATELY. PT ALSO RECEIVED TYLENOL FOR LOW GRADE FEVER AND BENADRYL FOR C/O OF ITCHING IN HANDS BEFORE ATIVAN ADMINISTRATION. AFTER ATIVAN GIVEN VSS. DIRECT OBSERVATION SITTER IN PLACE TO ENSURE PT STAYS IN BED AND ROOM AND MAINTAINS SAFETY. ON TELE SINUS RHYTHM IN 90'S. PT WILL BE NPO AFTER BREAKFAST TOMORROW IN ANTICIPATION OF PART ONE OF STRESS TEST DUE TO PT ADMIT DX OF NSTEMI, UNSURE IF PT WILL WANT TO PARTICIPATE DUE TO NOT BEING ABLE TO FOLLOW DIRECTIONS CURRENTLY. PT CURRENTLY RESTING WITH SITTER, BED ALARM ON, BED IN LOWEST POSITION, AND CALL LIGHT WITHIN REACH.
[2023-08-17 06:23] VITALS: BP 124/72
--- NOTE | 2023-08-17 07:15 | NUR ---
NOTIFIED BY INTERNAL CONTROL SPECIALIST PT HAD 1 MINUTE RUN OF SVT FROM [id number]. PT WAS ASLEEP AT TIME AND DID NOT APPEAR IN DISTRESS. DR RUANO NOTIFIED AND SAID THAT THEY WILL COME TO CHECK ON PT SOON.
[2023-08-17 07:21] VITALS: BP 121/83
[2023-08-17 10:36] VITALS: BP 120/69
[2023-08-17 10:40] LABS: BASOPHILS ABSOLUTE AUTO 0.03 K/mm3 (0.00-0.23); BASOPHILS PERCENT AUTO 1 % (0-2); EOSINOPHILS ABSOLUTE AUTO 0.11 K/mm3 (0.00-0.68); EOSINOPHILS PERCENT AUTO 2 % (0-6); Hematocrit 41.5 % (33.0-51.0); Hemoglobin 12.7 g/dL (11.5-16.0); IMMATURE GRAN ABSOLUTE AUTO 0.01 K/mm3 (0.00-0.10); IMMATURE GRAN PERCENT AUTO 0 % (0-1); LYMPHOCYTES ABSOLUTE AUTO 1.28 K/mm3 (0.84-5.20); LYMPHOCYTES PERCENT AUTO 23 % (21-46); MONOCYTES ABSOLUTE AUTO 0.93 K/mm3 (0.16-1.47); MONOCYTES PERCENT AUTO 16 % (4-13); Mean Corpuscular HGB 27.9 pg (26.0-34.0); Mean Corpuscular HGB Conc 30.6 g/dL (31.5-36.5); Mean Corpuscular Volume 91 fL (80-100); Mean Platelet Volume 10.8 fL (9.1-12.4); NEUTROPHILS ABSOLUTE AUTO 3.32 K/mm3 (1.96-9.15); NEUTROPHILS PERCENT AUTO 59 % (41-73); Platelet Count 190 K/mm3 (150-400); RDW Coefficient Variation 14.6 % (11.7-14.2); RDW Standard Deviation 49.1 fL (35.1-46.3); Red Blood Cell Count 4.56 M/mm3 (3.80-5.20); White Blood Cell Count 5.68 K/mm3 (4.00-11.30)
[2023-08-17 10:54] LABS: Albumin, Blood 3.4 g/dL (3.4-5.0); Albumin/Globulin Ratio 0.8 (0.8-1.8); Bilirubin, Total 0.4 mg/dL (0.1-1.0); Bun/Creatinine Ratio 31.9 (12.0-20.0); Calcium, Blood 9.4 mg/dL (8.5-10.1); Creatinine, Blood 0.63 mg/dL (0.40-1.00); Globulin, Blood 4.1 g/dL (2.2-4.0); Potassium, Blood 4.1 mmol/L (3.5-5.5); Total Protein, Blood 7.5 g/dL (6.4-8.2)
[2023-08-17] MEDS ORDERED: Aminophylline 250MG / 10ML 10 ML Vial ONE (14:07)
[2023-08-17] MEDS ORDERED: Regadenoson 0.4 MG/5 ML SYRINGE ONE (14:07)
[2023-08-17 15:27] VITALS: BP 149/79
--- NOTE | 2023-08-17 16:00 | NUR ---
SHIFT SUMMARY- PT HAS BEEN ORIENTED TO SELF AND SITUATION TODAY. SHE HAS BEEN RESTING COMFORTABLY T/O THE SHIFT. SHE HAS BEEN VERY MOBILE IN BED, REPOSITIONING HERSELF WHEN WE GO TO DO SO. PT HAD BOTH PARTS OF HER STRESS TEST TODAY. IV ACCESS WAS LOST, NEW PERIPHERAL IV PLACED WITH ULTRASOUND BY PERIOPERATIVE ASSISTANT. PT CURRENTLY IN BED RESTING, TYLENOL FOR PAIN MANAGEMENT SEEMED TO BE EFFECTIVE, HOWEVER AFTER GETTING UP TO THE BATHROOM SHE STATES THE PAIN IS RETURNED. AFTER GOING TO THE PBATHROOM THE PT WENT BACK TO BED AND AGAIN APPEARS TO BE RESTING COMFORTABLY, NO S&S OF DISTRESS NOTED, DIEGO LIGHT IN REACH 1:[address]
[2023-08-17 19:43] VITALS: BP 118/92
[2023-08-18 02:12] VITALS: BP 130/86
--- NOTE | 2023-08-18 02:15 | NUR ---
PT EXPRESSED WANTING A VISIT FROM [facility] AND TO LEARN MORE ABOUT ASSISTED LIVING/ LONG-TERM CARE IN THE AREA.
[2023-08-18 05:19] LABS: BASOPHILS ABSOLUTE AUTO 0.02 K/mm3 (0.00-0.23); BASOPHILS PERCENT AUTO 0 % (0-2); EOSINOPHILS PERCENT AUTO 2 % (0-6); Hematocrit 36.1 % (33.0-51.0); Hemoglobin 11.4 g/dL (11.5-16.0); IMMATURE GRAN ABSOLUTE AUTO 0.01 K/mm3 (0.00-0.10); IMMATURE GRAN PERCENT AUTO 0 % (0-1); LYMPHOCYTES ABSOLUTE AUTO 1.92 K/mm3 (0.84-5.20); LYMPHOCYTES PERCENT AUTO 33 % (21-46); MONOCYTES ABSOLUTE AUTO 0.77 K/mm3 (0.16-1.47); MONOCYTES PERCENT AUTO 13 % (4-13); Mean Corpuscular HGB 28.1 pg (26.0-34.0); Mean Corpuscular HGB Conc 31.6 g/dL (31.5-36.5); Mean Corpuscular Volume 89 fL (80-100); Mean Platelet Volume 11.4 fL (9.1-12.4); NEUTROPHILS ABSOLUTE AUTO 3.04 K/mm3 (1.96-9.15); NEUTROPHILS PERCENT AUTO 52 % (41-73); Platelet Count 223 K/mm3 (150-400); RDW Coefficient Variation 14.6 % (11.7-14.2); RDW Standard Deviation 47.6 fL (35.1-46.3); Red Blood Cell Count 4.05 M/mm3 (3.80-5.20); White Blood Cell Count 5.86 K/mm3 (4.00-11.30)
[2023-08-18 06:10] LABS: Albumin/Globulin Ratio 0.9 (0.8-1.8); Bilirubin, Total 0.3 mg/dL (0.1-1.0); Bun/Creatinine Ratio 35.4 (12.0-20.0); Calcium, Blood 8.9 mg/dL (8.5-10.1); Creatinine, Blood 0.76 mg/dL (0.40-1.00); Globulin, Blood 3.5 g/dL (2.2-4.0); Potassium, Blood 4.1 mmol/L (3.5-5.5); Total Protein, Blood 6.5 g/dL (6.4-8.2)
--- NOTE | 2023-08-18 06:38 | NUR ---
SHIFT SUMMARY: Pt is admitted for NSTEMI and is a full code. Is alert and able to make most needs known. ADLs have been one person. Pain has been managed with PRN medications. George reports sinus at 99. Was given nausea meds x2
[2023-08-18 07:18] VITALS: BP 126/71
[2023-08-18 10:17] VITALS: BP 142/81
[2023-08-18] MEDS ORDERED: ATOR40TA PO (12:13)
[2023-08-18] MEDS ORDERED: PANT40 PO (12:13)
--- NOTE | 2023-08-18 15:40 | NUR ---
discharge note- Pt was givwen verbal and written discharge instructions and acknowledged understanding of them. Pt was taken via wc van back to her residence. No s&s of distress noted at the time of discharge.
== END 2023-08-18 15:07 | disposition home health service (06) ==
LOC: ER 18:36 → MEDS 18:37
PROVIDERS: Nurse Practitioner; Student in an Organized Health Care Education/Training Program; ADMIT Internal Medicine
DX: R07.89 Other chest pain (principal); I10 Essential (primary) hypertension; J44.9 Chronic obstructive pulmonary disease, unspecified; K44.9 Diaphragmatic hernia without obstruction or gangrene; F17.210 Nicotine dependence, cigarettes, uncomplicated; F15.90 Other stimulant use, unspecified, uncomplicated; R10.9 Unspecified abdominal pain; M25.551 Pain in right hip; F22 Delusional disorders; Z79.899 Other long term (current) drug therapy
CPT/HCPCS: 36415; 71046; 71260; 78452; 80053; 84484; 85025; 85379; 85520; 85610; 85730; 93005; 93010; 93017; 96372; 96374; 96375; 96376; 97162; 97530; 99285-25; A9270; A9500; C9113; G0378; J0280; J0360; J1644; J1650; J2060; J2405; J2785; J3010; J7030; Q9967

== ENCOUNTER 2023-08-18 21:36 | Emergency (ER) | payer MEDICARE ==
[~2023-08-18] VITALS: Ht 149.9 cm; Wt 61.2 kg
[~2023-08-18 21:36] MED LIST changes: +ATOR40TA PO
[2023-08-18 21:57] LABS: BASOPHILS ABSOLUTE AUTO 0.03 K/mm3 (0.00-0.23); BASOPHILS PERCENT AUTO 0 % (0-2); EOSINOPHILS ABSOLUTE AUTO 0.08 K/mm3 (0.00-0.68); EOSINOPHILS PERCENT AUTO 1 % (0-6); Hematocrit 37.7 % (33.0-51.0); Hemoglobin 11.9 g/dL (11.5-16.0); IMMATURE GRAN ABSOLUTE AUTO 0.02 K/mm3 (0.00-0.10); IMMATURE GRAN PERCENT AUTO 0 % (0-1); LYMPHOCYTES PERCENT AUTO 19 % (21-46); MONOCYTES ABSOLUTE AUTO 1.07 K/mm3 (0.16-1.47); MONOCYTES PERCENT AUTO 11 % (4-13); Mean Corpuscular HGB 28.3 pg (26.0-34.0); Mean Corpuscular HGB Conc 31.6 g/dL (31.5-36.5); Mean Corpuscular Volume 90 fL (80-100); Mean Platelet Volume 10.9 fL (9.1-12.4); NEUTROPHILS ABSOLUTE AUTO 6.47 K/mm3 (1.96-9.15); NEUTROPHILS PERCENT AUTO 68 % (41-73); Platelet Count 219 K/mm3 (150-400); RDW Coefficient Variation 14.3 % (11.7-14.2); RDW Standard Deviation 47.1 fL (35.1-46.3); Red Blood Cell Count 4.21 M/mm3 (3.80-5.20); White Blood Cell Count 9.47 K/mm3 (4.00-11.30)
[2023-08-18 22:21] LABS: Albumin, Blood 3.5 g/dL (3.4-5.0); Albumin/Globulin Ratio 0.9 (0.8-1.8); Bilirubin, Total 0.3 mg/dL (0.1-1.0); Calcium, Blood 9.6 mg/dL (8.5-10.1); Creatinine, Blood 0.74 mg/dL (0.40-1.00); Globulin, Blood 4.1 g/dL (2.2-4.0); Potassium, Blood 3.7 mmol/L (3.5-5.5); Total Protein, Blood 7.6 g/dL (6.4-8.2)
[2023-08-19] VITALS: BP 148/94
== END 2023-08-19 00:20 | disposition home or self-care (01) ==
LOC: ER 21:36
PROVIDERS: Emergency Medicine
DX: R07.89 Other chest pain (principal); K21.9 Gastro-esophageal reflux disease without esophagitis; F15.10 Other stimulant abuse, uncomplicated; R79.89 Other specified abnormal findings of blood chemistry; I10 Essential (primary) hypertension; G89.29 Other chronic pain; J44.9 Chronic obstructive pulmonary disease, unspecified; F17.200 Nicotine dependence, unspecified, uncomplicated
CPT/HCPCS: 71045; 80053; 83690; 83880; 84484; 85025; 93005; 93010; 99285-25